=== PATIENT | female | born 1965 | race Caucasian/White ===

== ENCOUNTER 2019-03-17 05:48 | Emergency (ER) | payer MEDICAID ==
[~2019-03-17] VITALS: Ht 160 cm; Wt 75.0 kg
[2019-03-17] MEDS ORDERED: METHADONE HYDRO10 MG PO (06:00)
[2019-03-17] MEDS ORDERED: AMITRIPTYLINE H10 M2 PO (06:01)
[2019-03-17 07:48] LABS: EOS # 0.1 (0.04-0.40); EOS % 0.4 % (1.0-5.0); HEMATOCRIT 46.7 % (37.0-47.0); HEMOGLOBIN 15.6 g/dL (12.5-16.0); LYMPH# 2.2 (1.50-4.00); MEAN CELL VOLUME 91 fl (78-100); MEAN CORPUSCULAR HEMOGLOBIN 31 pg (27-31); MEAN CORPUSCULAR HGB CONC 33 g/dL (33-37); MEAN PLATELET VOLUME 10.4 fl (7.4-10.4); MONO # 0.9 (0.20-0.80); NEU # 11.6 (1.40-6.50); PLATELET COUNT 188 K/mm3 (130-400); RED BLOOD COUNT 5.12 M/mm3 (4.10-5.30); RED CELL DISTRIBUTION WIDTH 12.1 % (11.5-14.5); WHITE BLOOD COUNT 14.8 K/mm3 (4.8-10.8)
[2019-03-17 08:15] LABS: CALCIUM 9.6 mg/dL (8.4-10.2); POTASSIUM 4.5 mmol/L (3.5-5.1); TOTAL PROTEIN 6.6 g/dL (6.4-8.3)
[2019-03-17 08:17] LABS: TOTAL BILIRUBIN 1.7 mg/dL (0.2-1.2)
[2019-03-17 08:34] LABS: ALBUMIN 3.8 g/dL (3.5-5.0)
[2019-03-17 10:25] VITALS: BP 152/77
== END 2019-03-17 09:49 | disposition short-term general hospital (02) ==
LOC: ED 05:48
PROVIDERS: Nurse Practitioner; Nurse Practitioner Primary Care
DX: K56.609 Unspecified intestinal obstruction, unspecified as to partial versus complete obstruction (principal); M54.9 Dorsalgia, unspecified; M54.2 Cervicalgia; G89.29 Other chronic pain; Z87.19 Personal history of other diseases of the digestive system; Z90.49 Acquired absence of other specified parts of digestive tract; Z90.710 Acquired absence of both cervix and uterus; Z88.8 Allergy status to other drugs, medicaments and biological substances; Z88.5 Allergy status to narcotic agent
CPT/HCPCS: A4216; C9113; J0690; J1170; J2060; J7030; Q9967